=== PATIENT | female | born 1970 | race American Indian/Alaskan Native ===

== ENCOUNTER 2016-10-31 23:25 | Emergency (ER) | payer OTHER ==
--- NOTE | 2016-11-01 05:13 | Emergency Department Report ---
- General Chief complaint: Skin/Abscess/Foreign Body Stated complaint: BUMP ON BUTTOCK Time Seen by Provider: 11/01/16 05:07 Source: patient Mode of arrival: Ambulatory Limitations: No Limitations - History of Present Illness Initial comments: Patient here reported that she developed abscess of the right buttocks that seemed to pass on a large area and she states that was sitting out all day. She said that this started last Tuesday and is getting worse. She says she is a diabetic and she doesn't have a primary care physician. She said that she took insulin in the past but she hasn't taken any in one year because she does not have any insurance in cannot pay for insulin. Her blood sugar in triage was 331 and on chemistry was 334. Pt reports absces area TTP And presently at 3 out of 10. She denies any fever or chills. Denies any insect bite. Patient has a history of congestive heart failure asthma stroke diabetes greater than hypertension. She said her blood sugar has been manageable but she thinks it's okay she has. Infection why her blood sugars so high. MD complaint: abscess/boil Onset/Timin -: week(s) Tetanus Up to Date: yes Location: buttocks Severity: mild Severity scale (0 -10): 4 Quality: aching Consistency: intermittent Improves with: immobilization Worsens with: palpation, movement Context: none Treatments Prior to Arrival: bandages - Related Data Home Medications Medication Instructions Recorded Confirmed Last Taken ALBUTEROL Inhaler [ProAir HFA 2 puff IH QID PRN 07/28/16 07/28/16 Unknown Inhaler] Albuterol Sulfate [Albuterol 0.63% 0.63 mg IH TID PRN 07/28/16 07/28/16 Unknown NEBS] Previous Rx's Medication Instructions Recorded Last Taken Type Aspirin [Aspirin BABY CHEW TAB] 1 tab PO DAILY #30 tab.chew 04/07/14 Unknown Rx Lisinopril [Zestril TAB] 1 tab PO DAILY #30 tablet 07/29/16 Unknown Rx amLODIPine [Norvasc] 5 mg PO QDAY #30 tablet 07/29/16 Unknown Rx Acetaminophen/Codeine [Tylenol #3] 1 tab PO Q6H PRN #20 tab 11/01/16 Unknown Rx Cephalexin [Keflex] 500 mg PO Q8HR #30 cap 11/01/16 Unknown Rx Ferrous Sulfate [Feosol 325 MG tab] 325 mg PO BID #60 tablet 11/01/16 Unknown Rx Sulfamethoxazole/Trimethoprim 1 each PO BID #20 tablet 11/01/16 Unknown Rx [Bactrim DS TAB] Allergies Allergy/AdvReac Type Severity Reaction Status Date / Time grape Allergy "PASS Verified 10/31/16 23:45 OUT/HYPERVENTILATE" Abscess Boil HPI - HPI Chief Complaint: Skin/Abscess/Foreign Body Stated Complaint: BUMP ON BUTTOCK Time Seen by Provider: 11/01/16 05:07 Home Medications: Home Medications Medication Instructions Recorded Confirmed Last Taken ALBUTEROL Inhaler [ProAir HFA 2 puff IH QID PRN 07/28/16 07/28/16 Unknown Inhaler] Albuterol Sulfate [Albuterol 0.63% 0.63 mg IH TID PRN 07/28/16 07/28/16 Unknown NEBS] Previous Rx's Medication Instructions Recorded Last Taken Type Aspirin [Aspirin BABY CHEW TAB] 1 tab PO DAILY #30 tab.chew 04/07/14 Unknown Rx Lisinopril [Zestril TAB] 1 tab PO DAILY #30 tablet 07/29/16 Unknown Rx amLODIPine [Norvasc] 5 mg PO QDAY #30 tablet 07/29/16 Unknown Rx Acetaminophen/Codeine [Tylenol #3] 1 tab PO Q6H PRN #20 tab 11/01/16 Unknown Rx Cephalexin [Keflex] 500 mg PO Q8HR #30 cap 11/01/16 Unknown Rx Ferrous Sulfate [Feosol 325 MG tab] 325 mg PO BID #60 tablet 11/01/16 Unknown Rx Sulfamethoxazole/Trimethoprim 1 each PO BID #20 tablet 11/01/16 Unknown Rx [Bactrim DS TAB] Allergies/Adverse Reactions: Allergies Allergy/AdvReac Type Severity Reaction Status Date / Time grape Allergy "PASS Verified 10/31/16 23:45 OUT/HYPERVENTILATE" ED Review of Systems ROS: Stated complaint: BUMP ON BUTTOCK Other details as noted in HPI Comment: All other systems reviewed and negative Constitutional: denies: chills, fever ENT: denies: congestion Respiratory: no symptoms reported Cardiovascular: denies: chest pain, palpitations, edema, syncope Gastrointestinal: denies: abdominal pain, nausea, vomiting, diarrhea Musculoskeletal: denies: back pain, joint swelling, arthralgia Skin: other (abscess to right buttocks). denies: rash Neurological: denies: headache ED Past Medical Hx - Past Medical History Previous Medical History?: Yes Hx Hypertension: Yes Hx CVA: (TIA 2012) Hx Congestive Heart Failure: Yes Hx Diabetes: Yes Hx GERD: Yes Hx Asthma: Yes - Surgical History Past Surgical History?: Yes Hx Cholecystectomy: Yes Additional Surgical History: X 2 - Family History Family history: diabetes, hypertension - Social History Smoking Status: Never Smoker Substance Use Type: None - Medications Home Medications: Home Medications Medication Instructions Recorded Confirmed Last Taken Type Aspirin [Aspirin BABY CHEW TAB] 1 tab PO DAILY #30 tab.chew 04/07/14 07/28/16 Unknown Rx ALBUTEROL Inhaler [ProAir HFA 2 puff IH QID PRN 07/28/16 07/28/16 Unknown History Inhaler] Albuterol Sulfate [Albuterol 0.63% 0.63 mg IH TID PRN 07/28/16 07/28/16 Unknown History NEBS] Lisinopril [Zestril TAB] 1 tab PO DAILY #30 tablet 07/29/16 Unknown Rx amLODIPine [Norvasc] 5 mg PO QDAY #30 tablet 07/29/16 Unknown Rx Acetaminophen/Codeine [Tylenol #3] 1 tab PO Q6H PRN #20 tab 11/01/16 Unknown Rx Cephalexin [Keflex] 500 mg PO Q8HR #30 cap 11/01/16 Unknown Rx Ferrous Sulfate [Feosol 325 MG tab] 325 mg PO BID #60 tablet 11/01/16 Unknown Rx Sulfamethoxazole/Trimethoprim 1 each PO BID #20 tablet 11/01/16 Unknown Rx [Bactrim DS TAB] ED Physical Exam - General Limitations: No Limitations General appearance: alert, in no apparent distress - Head Head exam: Present: atraumatic, normocephalic, normal inspection - Eye Eye exam: Present: normal appearance, PERRL, EOMI. Absent: periorbital swelling , periorbital tenderness Pupils: Present: normal accommodation - ENT ENT exam: Present: normal exam, normal orophraynx, mucous membranes moist, TM's normal bilaterally, normal external ear exam - Neck Neck exam: Present: normal inspection, full ROM. Absent: tenderness, meningismus, lymphadenopathy - Respiratory Respiratory exam: Present: normal lung sounds bilaterally. Absent: respiratory distress, chest wall tenderness - Cardiovascular Cardiovascular Exam: Present: regular rate, normal rhythm, normal heart sounds - GI/Abdominal GI/Abdominal exam: Present: soft, normal bowel sounds. Absent: distended, tenderness, guarding, rebound, rigid - Extremities Exam Extremities exam: Present: normal inspection, full ROM, normal capillary refill. Absent: tenderness, pedal edema, joint swelling, calf tenderness - Back Exam Back exam: Present: normal inspection, full ROM. Absent: tenderness, CVA tenderness (R), CVA tenderness (L), muscle spasm, paraspinal tenderness, vertebral tenderness, rash noted - Neurological Exam Neurological exam: Present: alert, oriented X3, normal gait, reflexes normal. Absent: motor sensory deficit - Psychiatric Psychiatric exam: Present: normal affect, normal mood - Expanded Skin Exam Expanded Type of lesion: Present: abscess Distribution of rash: other (right buttocks) Description of rash: Present: size (4 x 4 area of erythema with 2 x 2 area of induration and minimal fluctuance.), tenderness, erythematous, swelling, fluctuant, indurated. Absent: discharge ED Course Vital Signs 10/31/16 23:45 Temperature 98.5 F Pulse Rate 75 Respiratory 18 Rate Blood Pressure 126/69 O2 Sat by Pulse 99 Oximetry - Reevaluation(s) Reevaluation #1: 11/01/16 07:23 Patient given clindamycin 600 mg IM for his cellulitis and abscess. She was also given insulin regular for blood sugar 331 and her blood sugars now a 301. unable to give patient IV fluids becausef she has a history of chf - I & D Right Buttocks Type of Procedure: Complex Site: right buttocks Blade Size: 0.5% Marcaine 10 cc used to numb area I & D Procedure: betadine prep, sterile drapes applied, sterile dressing applied , gauze wick placed Progress: Patient said TD vaccine is UP to said tetanus vaccine is up-to-date.date ED Medical Decision Making - Lab Data Result diagrams: 11/01/16 05:14 11/01/16 05:14 Lab Results 11/01/16 11/01/16 11/01/16 Range/Units 04:13 05:14 05:14 WBC 9.3 (4.5-11.0) K/mm3 RBC 4.64 (3.65-5.03) M/mm3 Hgb 8.0 L (10.1-14.3) gm/dl Hct 26.9 L (30.3-42.9) % MCV 58 L (79-97) fl MCH 17 L (28-32) pg MCHC 30 (30-34) % RDW 19.9 H (13.2-15.2) % Plt Count 442 H (140-440) K/mm3 Lymph % (Auto) 25.4 (13.4-35.0) % [place] % (Auto) 6.6 (0.0-7.3) % Eos % (Auto) 1.3 (0.0-4.3) % Baso % (Auto) 0.4 (0.0-1.8) % Lymph # 2.4 (1.2-5.4) K/mm3 [place] # 0.6 (0.0-0.8) K/mm3 Eos # 0.1 (0.0-0.4) K/mm3 Baso # 0.0 (0.0-0.1) K/mm3 Seg Neutrophils % 66.3 (40.0-70.0) % Seg Neutrophils # 6.1 (1.8-7.7) K/mm3 Sodium 136 L (137-145) mmol/L Potassium 3.9 (3.6-5.0) mmol/L Chloride 97.9 L (98-107) mmol/L Carbon Dioxide 24 (22-30) mmol/L Anion Gap 18 mmol/L BUN 10 (7-17) mg/dL Creatinine 0.7 (0.7-1.2) mg/dL Estimated GFR > 60 ml/min BUN/Creatinine Ratio 14.28 % Glucose 334 H (65-100) mg/dL POC Glucose 331 H (70-105) Calcium 8.9 (8.4-10.2) mg/dL 11/01/16 Range/Units 07:13 WBC (4.5-11.0) K/mm3 RBC (3.65-5.03) M/mm3 Hgb (10.1-14.3) gm/dl Hct (30.3-42.9) % MCV (79-97) fl MCH (28-32) pg MCHC (30-34) % RDW (13.2-15.2) % Plt Count (140-440) K/mm3 Lymph % (Auto) (13.4-35.0) % [place] % (Auto) (0.0-7.3) % Eos % (Auto) (0.0-4.3) % Baso % (Auto) (0.0-1.8) % Lymph # (1.2-5.4) K/mm3 [place] # (0.0-0.8) K/mm3 Eos # (0.0-0.4) K/mm3 Baso # (0.0-0.1) K/mm3 Seg Neutrophils % (40.0-70.0) % Seg Neutrophils # (1.8-7.7) K/mm3 Sodium (137-145) mmol/L Potassium (3.6-5.0) mmol/L Chloride (98-107) mmol/L Carbon Dioxide (22-30) mmol/L Anion Gap mmol/L BUN (7-17) mg/dL Creatinine (0.7-1.2) mg/dL Estimated GFR ml/min BUN/Creatinine Ratio % Glucose (65-100) mg/dL POC Glucose 301 H (70-105) Calcium (8.4-10.2) mg/dL Wound culture sent and pending - Medical Decision Making ED course: See procedure note for details on incision and drainage with packing. Patient here for abscess to right buttocks which was incision and drained. Area with significant induration and minimal fluctuance therefore small amount of pus was expressed. I told patient she needs to do sitz baths 3- 4 times a day to help to soften up abscess and facilitate drainage. I also instructed her to leave packing in place and to return to emergency room in 4 days for removal of packing and reevaluation of wound. I told her that she needs to take her blood her daily and if she has a fever she needs to return to emergency room [facility]. Patient has congestive heart failure with fluid restriction so I was unable to give her any medication for blood sugar 331. I gave her 6 units of insulin regular which brought her blood sugar down to 301. She said her blood sugar is usually in the 100 and she thinks it's because she has an infection right elevated. Patient CBC reflects normal white count and she is anemic which is chronic for her. I discussed with her that I'll put her on iron pill because she says she is not on any iron pill at present. Her kidney functions are normal, CO2 is a 24 and anion gap is 18. I discussed patient that I'll discharge her on antibiotic and she will need to call [facility] and schedule an appointment for management of chronic disease. Patient discharged home with prescription for Bactrim, Feso4, Tylenol 3 and Keflex. She was understanding of diagnosis and discharge instruction discharged home in stable condition. Critical care attestation.: If time is entered above; I have spent that time in minutes in the direct care of this critically ill patient, excluding procedure time. ED Disposition Clinical Impression: Abscess of cellulitis of buttock, Encounter for incision and drainage procedure , Hyperglycemia, Anemia of chronic disease Disposition: DISCHARGED TO HOME OR SELFCARE Is pt being admited?: No Does the pt Need Aspirin: No Condition: Stable Instructions: Diabetes Mellitus Type 1 in Adults (ED), Acute Wound Care (ED), Diabetic Hyperglycemia (ED), Abscess Incision and Drainage (ED), Cellulitis (ED) Additional Instructions: Please follow-up with [facility] for management of chronic disease. Please call today to schedule an appointment. Please take her blood sugar daily. Please do sitz baths 3-4 times a day to facilitate drainage of abscess to right buttocks. Keep affected area clean and dry. Tylenol 3 will cause drowsiness to please do not drive or operate heavy machinery while taking this medication. Take Bactrim and Keflex antibiotic. Please return to hospital in 4 days to have fever wound recheck and packing removed Prescriptions: Acetaminophen/Codeine [Tylenol #3] 1 tab PO Q6H PRN #20 tab PRN Reason: Pain Cephalexin [Keflex] 500 mg PO Q8HR #30 cap Ferrous Sulfate [Feosol 325 MG tab] 325 mg PO BID #60 tablet Sulfamethoxazole/Trimethoprim [Bactrim DS TAB] 1 each PO BID #20 tablet Referrals: [facility] [Outside] - 11/02/16 [facility] [Outside] - 11/02/16 Forms: Work/School Release Form(ED)
[2016-11-01] MEDS ORDERED: CLEOCIN IM ONE (05:17)
[2016-11-01 05:44] LABS: Anion Gap 18 mmol/L; BUN/Creatinine Ratio 14.28; Blood Urea Nitrogen 10 mg/dL (7-17); Calcium 8.9 mg/dL (8.4-10.2); Carbon Dioxide 24 mmol/L (22-30); Chloride 97.9 mmol/L (98-107); Glucose 334 mg/dL (65-100); Potassium 3.9 mmol/L (3.6-5.0); Sodium 136 mmol/L (137-145)
[2016-11-01 05:45] LABS: Basophils % (Auto) 0.4 % (0.0-1.8); Eosinophils % (Auto) 1.3 % (0.0-4.3); Hematocrit 26.9 % (30.3-42.9); Mean Corpuscular HGB Conc 30 % (30-34); Platelet Count 442 K/mm3 (140-440); Red Blood Count 4.64 M/mm3 (3.65-5.03); Red Cell Distribution Width 19.9 % (13.2-15.2); White Blood Count 9.3 K/mm3 (4.5-11.0)
[2016-11-01] MEDS ORDERED: MARCAINE 0.5% INFILTRATI NR (06:00)
[2016-11-01 06:04] LABS: Mean Corpuscular Volume 58 fl (79-97)
[2016-11-01 06:05] LABS: Mean Corpuscular Hemoglobin 17 pg (28-32)
[2016-11-01] MEDS ORDERED: NOVOLOG SUB-Q ONE (06:15)
[2016-11-01 08:01] VITALS: BP 136/80
== END 2016-11-01 07:45 | disposition home or self-care (01) ==
LOC: ED 23:25
DX: L02.31 Cutaneous abscess of buttock (principal); L03.317 Cellulitis of buttock; E11.65 Type 2 diabetes mellitus with hyperglycemia; D53.9 Nutritional anemia, unspecified; I10 Essential (primary) hypertension; I50.9 Heart failure, unspecified; K21.9 Gastro-esophageal reflux disease without esophagitis; J45.909 Unspecified asthma, uncomplicated; Z90.49 Acquired absence of other specified parts of digestive tract; Z86.73 Personal history of transient ischemic attack (TIA), and cerebral infarction without residual deficits; Z91.018 Allergy to other foods
CPT/HCPCS: 36415; 80048; 82962; 85025; 87076; 87116; 87185; 87186; 96372; J1815

== ENCOUNTER 2016-12-23 21:24 | Emergency (ER) | payer OTHER ==
[2016-12-23 22:21] LABS: Basophils % (Auto) 0.3 % (0.0-1.8); Eosinophils % (Auto) 0.5 % (0.0-4.3); Mean Corpuscular HGB Conc 30 % (30-34); Platelet Count 323 K/mm3 (140-440); White Blood Count 8.8 K/mm3 (4.5-11.0)
[2016-12-23 22:25] LABS: Hemoglobin 9.5 gm/dl (10.1-14.3); Mean Corpuscular Hemoglobin 18 pg (28-32); Mean Corpuscular Volume 59 fl (79-97); Red Cell Distribution Width 20.6 % (13.2-15.2)
[2016-12-23 22:29] LABS: Alanine Aminotransferase 9 units/L (7-56); Albumin 3.7 g/dL (3.9-5); Albumin/Globulin Ratio 1.1 %; Alkaline Phosphatase 89 units/L (35-129); Anion Gap 17 mmol/L; BUN/Creatinine Ratio 13.33; Blood Urea Nitrogen 8 mg/dL (7-17); Calcium 9.1 mg/dL (8.4-10.2); Carbon Dioxide 24 mmol/L (22-30); Potassium 4.3 mmol/L (3.6-5.0); Sodium 131 mmol/L (137-145); Total Protein 7.1 g/dL (6.3-8.2)
[2016-12-23 22:47] LABS: Glucose 566 mg/dL (65-100)
[2016-12-23 23:18] LABS: Bilirubin,Urine NEG (Negative); Blood,Urine SM (Negative); Ketones,Urine TR mg/dL (Negative); Leukocyte Esterase,Urine MOD (Negative); Nitrite,Urine NEG (Negative); Protein,Urine <15 mg/dL mg/dL (Negative); Urobilinogen,Urine < 2.0 mg/dL (<2.0)
[2016-12-23] MEDS ORDERED: NACL 0.9% 1000 ML 1,000 ML IV ONE (23:35)
[2016-12-24] MEDS ORDERED: TORADOL IV ONE (01:11)
[2016-12-24] MEDS ORDERED: ZOFRAN IV ONE (01:11)
[2016-12-24] MEDS ORDERED: MORPHINE IV ONE (01:11)
[2016-12-24] MEDS ORDERED: NACL 0.9% 1000 ML 1,000 ML IV ONE (01:11)
--- NOTE | 2016-12-24 01:17 | Emergency Department Report ---
ED Abdominal Pain HPI - General Chief Complaint: Abdominal Pain Stated Complaint: RIGHT TOE PAIN Time Seen by Provider: 12/24/16 00:55 Source: patient Mode of arrival: Ambulatory Limitations: No Limitations - History of Present Illness Initial Comments: 46-year-old female with a past medical history of diabetes (insulin), CVA, hypertension, GERD, and previous cholecystectomy and 2 presents to the hospital complaints of abdominal pain and right great toe pain. Patient has had suprapubic abdominal pain 1 week. Pain is sharp, intermittent, worse with palpation. Rated 7/10 intensity. No alleviating factors. Positive associated vaginal discharge. Patient sexually active with one partner and occasional condom use. She denies nausea, vomiting, diarrhea, fever, dysuria, or hematuria. Patient has secondary complaint of right great toe pain. 2 days ago she pushed her cuticle to the side then her proximal great toe nail came off with the distal still attached. Patient complains of 7/10 pain to this area as well described as sharp. Patient has been noncompliant with all her medications including insulin for at least a year. She reports that she used to take a short acting insulin 10 units 3 times a day and a long acting insulin 15 units at night. PMD: Dr. Springer, patient has not followed up to see her physician. Severity scale (0 -10): 6 - Related Data Home Medications Medication Instructions Recorded Confirmed Last Taken ALBUTEROL Inhaler [ProAir HFA 2 puff IH QID PRN 07/28/16 07/28/16 Unknown Inhaler] Albuterol Sulfate [Albuterol 0.63% 0.63 mg IH TID PRN 07/28/16 07/28/16 Unknown NEBS] Previous Rx's Medication Instructions Recorded Last Taken Type Aspirin [Aspirin BABY CHEW TAB] 1 tab PO DAILY #30 tab.chew 04/07/14 Unknown Rx Lisinopril [Zestril TAB] 1 tab PO DAILY #30 tablet 07/29/16 Unknown Rx amLODIPine [Norvasc] 5 mg PO QDAY #30 tablet 07/29/16 Unknown Rx Acetaminophen/Codeine [Tylenol #3] 1 tab PO Q6H PRN #20 tab 11/01/16 Unknown Rx Cephalexin [Keflex] 500 mg PO Q8HR #30 cap 11/01/16 Unknown Rx Ferrous Sulfate [Feosol 325 MG tab] 325 mg PO BID #60 tablet 11/01/16 Unknown Rx Sulfamethoxazole/Trimethoprim 1 each PO BID #20 tablet 11/01/16 Unknown Rx [Bactrim DS TAB] Blood-Glucose Meter [Relion 1 each MC PRN #1 kit 12/24/16 Unknown Rx All-in-One] Ibuprofen [Motrin] 600 mg PO Q8H PRN #30 tablet 12/24/16 Unknown Rx Insulin Regular, Human [HumuLIN R] See Protocol SC ACHS #1000 units 12/24/16 Unknown Rx metroNIDAZOLE [Flagyl] 500 mg PO Q12HR #14 tab 12/24/16 Unknown Rx traMADol [Ultram 50 MG tab] 50 mg PO Q6HR PRN #20 tablet 12/24/16 Unknown Rx Allergies Allergy/AdvReac Type Severity Reaction Status Date / Time grape Allergy "PASS Verified 10/31/16 23:45 OUT/HYPERVENTILATE" ED Review of Systems ROS: Stated complaint: RIGHT TOE PAIN Other details as noted in HPI Comment: All other systems reviewed and negative Other: Constitutional: No fevers chills Eyes: No eye pain visual changes ENT: No ear pain or throat pain Neck: Denies pain Respiratory: Denies cough wheezing shortness of breath Cardiovascular: Denies chest pain, palpitations, syncope GI: Denies nausea, vomiting, diarrhea : Denies dysuria, urinary frequency, or urgency Musculoskeletal: as per hpi Skin: Denies rash, lesions, erythema Neurologic: Denies headache, numbness, weakness Psychiatric: Denies suicidal ideation, hallucinations ED Past Medical Hx - Past Medical History Previous Medical History?: Yes Hx Hypertension: Yes Hx CVA: (TIA 2012) Hx Congestive Heart Failure: Yes Hx Diabetes: Yes Hx GERD: Yes Hx Asthma: Yes - Surgical History Past Surgical History?: Yes Hx Cholecystectomy: Yes Additional Surgical History: X 2 - Social History Smoking Status: Never Smoker Substance Use Type: None - Medications Home Medications: Home Medications Medication Instructions Recorded Confirmed Last Taken Type Aspirin [Aspirin BABY CHEW TAB] 1 tab PO DAILY #30 tab.chew 04/07/14 07/28/16 Unknown Rx ALBUTEROL Inhaler [ProAir HFA 2 puff IH QID PRN 07/28/16 07/28/16 Unknown History Inhaler] Albuterol Sulfate [Albuterol 0.63% 0.63 mg IH TID PRN 07/28/16 07/28/16 Unknown History NEBS] Lisinopril [Zestril TAB] 1 tab PO DAILY #30 tablet 07/29/16 Unknown Rx amLODIPine [Norvasc] 5 mg PO QDAY #30 tablet 07/29/16 Unknown Rx Acetaminophen/Codeine [Tylenol #3] 1 tab PO Q6H PRN #20 tab 11/01/16 Unknown Rx Cephalexin [Keflex] 500 mg PO Q8HR #30 cap 11/01/16 Unknown Rx Ferrous Sulfate [Feosol 325 MG tab] 325 mg PO BID #60 tablet 11/01/16 Unknown Rx Sulfamethoxazole/Trimethoprim 1 each PO BID #20 tablet 11/01/16 Unknown Rx [Bactrim DS TAB] Blood-Glucose Meter [Relion 1 each MC PRN #1 kit 12/24/16 Unknown Rx All-in-One] Ibuprofen [Motrin] 600 mg PO Q8H PRN #30 tablet 12/24/16 Unknown Rx Insulin Regular, Human [HumuLIN R] See Protocol SC ACHS #1000 units 12/24/16 Unknown Rx metroNIDAZOLE [Flagyl] 500 mg PO Q12HR #14 tab 12/24/16 Unknown Rx traMADol [Ultram 50 MG tab] 50 mg PO Q6HR PRN #20 tablet 12/24/16 Unknown Rx ED Physical Exam - General Limitations: No Limitations - Other Other exam information: General: No limitations, patient is alert in no acute distress Head exam: Atraumatic, normocephalic Eyes exam: Normal appearance, pupils equal reactive to light, extraocular movements intact ENT: Moist mucous membrane, normal oropharynx Neck exam: Normal inspection, full range of motion, no meningismus nontender Respiratory exam: Clear to auscultation bilateral, no wheezes, rales, crackles Cardiovascular: Normal rate and rhythm, normal heart sounds Abdomen: Soft, nondistended, mild superpubic tenderness, with normal bowel sounds, no rebound, or guarding : White and clumping vaginal discharge on the labia and external vaginal area and internally . No CMT or adnexal tenderness Extremity: Full range of motion, 2+ DP pulses equal bilaterally. Right great toe with proximal toenail absent but distal still attached. Mild tenderness palpation. No edema, warmth, erythema, or purulent drainage. Back: Normal Inspection, full range of motion, no tenderness Neurologic: Alert, oriented x3, cranial nerves intact, no motor or sensory deficit Psychiatric: normal affect, normal mood Skin: Warm, dry, intact ED Course Vital Signs 12/23/16 12/23/16 12/24/16 21:46 23:55 01:06 Temperature 98.6 F Pulse Rate 77 76 78 Respiratory 18 18 16 Rate Blood Pressure 130/78 Blood Pressure 135/78 132/76 [Left] O2 Sat by Pulse 98 100 99 Oximetry 12/24/16 03:49 Temperature Pulse Rate 76 Respiratory 18 Rate Blood Pressure Blood Pressure 122/72 [Left] O2 Sat by Pulse 99 Oximetry - Reevaluation(s) Reevaluation #1: 12/24/16 01:16 Patient treated with insulin, normal saline with improvement and glucose was still elevated. Additional saline, insulin ordered. Morphine, Toradol, and Zofran ordered for pain Reevaluation #2: 12/24/16 04:38 Patient has a wet prep is positive for bacterial vaginosis, yeast, and Trichomonas. Patient will also be empirically treated for gonorrhea and chlamydia given findings for Trichomonas. Azithromycin, Flagyl, and Rocephin ordered. Diflucan ordered for yeast ED Medical Decision Making - Lab Data Result diagrams: 12/23/16 22:04 12/23/16 22:04 Lab Results 12/23/16 12/23/16 12/23/16 Range/Units 22:04 22:04 22:59 WBC 8.8 (4.5-11.0) K/mm3 RBC 5.40 H (3.65-5.03) M/mm3 Hgb 9.5 L (10.1-14.3) gm/dl Hct 32.0 (30.3-42.9) % MCV 59 L (79-97) fl MCH 18 L (28-32) pg MCHC 30 (30-34) % RDW 20.6 H (13.2-15.2) % Plt Count 323 (140-440) K/mm3 Lymph % (Auto) 24.7 (13.4-35.0) % Parker % (Auto) 6.6 (0.0-7.3) % Eos % (Auto) 0.5 (0.0-4.3) % Baso % (Auto) 0.3 (0.0-1.8) % Lymph # 2.2 (1.2-5.4) K/mm3 Parker # 0.6 (0.0-0.8) K/mm3 Eos # 0.0 (0.0-0.4) K/mm3 Baso # 0.0 (0.0-0.1) K/mm3 Seg Neutrophils % 67.9 (40.0-70.0) % Seg Neutrophils # 6.0 (1.8-7.7) K/mm3 Sodium 131 L (137-145) mmol/L Potassium 4.3 (3.6-5.0) mmol/L Chloride 94.0 L (98-107) mmol/L Carbon Dioxide 24 (22-30) mmol/L Anion Gap 17 mmol/L BUN 8 (7-17) mg/dL Creatinine 0.6 L (0.7-1.2) mg/dL Estimated GFR > 60 ml/min BUN/Creatinine Ratio 13.33 % Glucose 566 H* (65-100) mg/dL POC Glucose (70-105) Calcium 9.1 (8.4-10.2) mg/dL Total Bilirubin 0.30 (0.1-1.2) mg/dL AST 11 (5-40) units/L ALT 9 (7-56) units/L Alkaline Phosphatase 89 (35-129) units/L Total Protein 7.1 (6.3-8.2) g/dL Albumin 3.7 L (3.9-5) g/dL Albumin/Globulin Ratio 1.1 % Urine Color Straw (Yellow) Urine Turbidity Clear (Clear) Urine pH 6.0 (5.0-7.0) Ur Specific [place] 1.033 H (1.003-1.030) Urine Protein <15 mg/dl (Negative) mg/dL Urine Glucose (UA) >=500 (Negative) mg/dL Urine Ketones Tr (Negative) mg/dL Urine Blood Sm (Negative) Urine Nitrite Neg (Negative) Ur Reducing Substances Not Reportable Urine Bilirubin Neg (Negative) Urine Ictotest Not Reportable Urine Urobilinogen < 2.0 (<2.0) mg/dL Ur Leukocyte Esterase Mod (Negative) Urine WBC (Auto) 9.0 H (0.0-6.0) /HPF Urine RBC (Auto) 5.0 (0.0-6.0) /HPF U Epithel Cells (Auto) 2.0 (0-13.0) /HPF Urine HCG, Qual Negative (Negative) 12/23/16 12/24/16 12/24/16 Range/Units 23:36 00:53 02:22 WBC (4.5-11.0) K/mm3 RBC (3.65-5.03) M/mm3 Hgb (10.1-14.3) gm/dl Hct (30.3-42.9) % MCV (79-97) fl MCH (28-32) pg MCHC (30-34) % RDW (13.2-15.2) % Plt Count (140-440) K/mm3 Lymph % (Auto) (13.4-35.0) % Parker % (Auto) (0.0-7.3) % Eos % (Auto) (0.0-4.3) % Baso % (Auto) (0.0-1.8) % Lymph # (1.2-5.4) K/mm3 Parker # (0.0-0.8) K/mm3 Eos # (0.0-0.4) K/mm3 Baso # (0.0-0.1) K/mm3 Seg Neutrophils % (40.0-70.0) % Seg Neutrophils # (1.8-7.7) K/mm3 Sodium (137-145) mmol/L Potassium (3.6-5.0) mmol/L Chloride (98-107) mmol/L Carbon Dioxide (22-30) mmol/L Anion Gap mmol/L BUN (7-17) mg/dL Creatinine (0.7-1.2) mg/dL Estimated GFR ml/min BUN/Creatinine Ratio % Glucose (65-100) mg/dL POC Glucose > 500 H 332 H 186 H (70-105) Calcium (8.4-10.2) mg/dL Total Bilirubin (0.1-1.2) mg/dL AST (5-40) units/L ALT (7-56) units/L Alkaline Phosphatase (35-129) units/L Total Protein (6.3-8.2) g/dL Albumin (3.9-5) g/dL Albumin/Globulin Ratio % Urine Color (Yellow) Urine Turbidity (Clear) Urine pH (5.0-7.0) Ur Specific [place] (1.003-1.030) Urine Protein (Negative) mg/dL Urine Glucose (UA) (Negative) mg/dL Urine Ketones (Negative) mg/dL Urine Blood (Negative) Urine Nitrite (Negative) Ur Reducing Substances Urine Bilirubin (Negative) Urine Ictotest Urine Urobilinogen (<2.0) mg/dL Ur Leukocyte Esterase (Negative) Urine WBC (Auto) (0.0-6.0) /HPF Urine RBC (Auto) (0.0-6.0) /HPF U Epithel Cells (Auto) (0-13.0) /HPF Urine HCG, Qual (Negative) 12/24/16 Range/Units 03:42 WBC (4.5-11.0) K/mm3 RBC (3.65-5.03) M/mm3 Hgb (10.1-14.3) gm/dl Hct (30.3-42.9) % MCV (79-97) fl MCH (28-32) pg MCHC (30-34) % RDW (13.2-15.2) % Plt Count (140-440) K/mm3 Lymph % (Auto) (13.4-35.0) % Parker % (Auto) (0.0-7.3) % Eos % (Auto) (0.0-4.3) % Baso % (Auto) (0.0-1.8) % Lymph # (1.2-5.4) K/mm3 Parker # (0.0-0.8) K/mm3 Eos # (0.0-0.4) K/mm3 Baso # (0.0-0.1) K/mm3 Seg Neutrophils % (40.0-70.0) % Seg Neutrophils # (1.8-7.7) K/mm3 Sodium (137-145) mmol/L Potassium (3.6-5.0) mmol/L Chloride (98-107) mmol/L Carbon Dioxide (22-30) mmol/L Anion Gap mmol/L BUN (7-17) mg/dL Creatinine (0.7-1.2) mg/dL Estimated GFR ml/min BUN/Creatinine Ratio % Glucose (65-100) mg/dL POC Glucose 177 H (70-105) Calcium (8.4-10.2) mg/dL Total Bilirubin (0.1-1.2) mg/dL AST (5-40) units/L ALT (7-56) units/L Alkaline Phosphatase (35-129) units/L Total Protein (6.3-8.2) g/dL Albumin (3.9-5) g/dL Albumin/Globulin Ratio % Urine Color (Yellow) Urine Turbidity (Clear) Urine pH (5.0-7.0) Ur Specific [place] (1.003-1.030) Urine Protein (Negative) mg/dL Urine Glucose (UA) (Negative) mg/dL Urine Ketones (Negative) mg/dL Urine Blood (Negative) Urine Nitrite (Negative) Ur Reducing Substances Urine Bilirubin (Negative) Urine Ictotest Urine Urobilinogen (<2.0) mg/dL Ur Leukocyte Esterase (Negative) Urine WBC (Auto) (0.0-6.0) /HPF Urine RBC (Auto) (0.0-6.0) /HPF U Epithel Cells (Auto) (0-13.0) /HPF Urine HCG, Qual (Negative) Wet prep: Greater than 20 clue cells, + yeast, + trichomonas GC Chlamydia: Pending - Medical Decision Making Glucose has improved with IV fluids and multiple doses of insulin. Patient has been off of her medication times one year. She will be prescribed of regular insulin 3 times a day sliding scale and encouraged to follow-up with a primary care doctor for further insulin management. She will be treated for Trichomonas , BV, and yeast. She was empirically treated for gonorrhea and chlamydia since results are pending. Right great toe does not appear to be infected. Podiatry follow-up will be recommended - Differential Diagnosis cellulitis, vaginitis, cervicitis, diverticulitis, appendicitis, UTI Critical Care Time: No Critical care attestation.: If time is entered above; I have spent that time in minutes in the direct care of this critically ill patient, excluding procedure time. ED Disposition Clinical Impression: Diabetes mellitus with hyperglycemia, Noncompliance with medication regimen, Yeast vaginitis, Trichomonas infection, Bacterial vaginosis, Nail avulsion, toe Disposition: DISCHARGED TO HOME OR SELFCARE Is pt being admited?: No Does the pt Need Aspirin: No Condition: Stable Instructions: Diabetes Mellitus Type 2 in Adults (ED), Bacterial Vaginosis (ED) , Trichomoniasis (ED), Vulvovaginal Candidiasis (ED), Toenail/Fingernail Removal (ED) Additional Instructions: Take the medication as prescribed. Use the good Rx card provided at [facility] to see if this make sure medication more affordable. Your gonorrhea chlamydia tests are pending but you were treated today. Your gonorrhea and chlamydia tests are pending and take approximately 3-4 days result. You may obtain results in medical records with a photo ID. You may also obtain results through the follow-up doctor office via medical record request. He was treated today for yeast infection as well but it would be difficult to treat if you're sugars are not controlled with her insulin. If he continued to have itching and discharge he may use [id number] yeast infection treatment. Follow-up with the primary care doctor or clinic in [facility] doctor provided for further treatment. Follow-up with the bulk clerk/foot doctor regarding your toenail. Prescriptions: Blood-Glucose Meter [Relion All-in-One] 1 each MC PRN #1 kit Ibuprofen [Motrin] 600 mg PO Q8H PRN #30 tablet PRN Reason: Pain Insulin Regular, Human [HumuLIN R] See Protocol SC ACHS #1000 units metroNIDAZOLE [Flagyl] 500 mg PO Q12HR #14 tab traMADol [Ultram 50 MG tab] 50 mg PO Q6HR PRN #20 tablet PRN Reason: Pain Referrals: [facility] [Provider Group] - 2-3 Days [facility], [Primary Care Provider] - 2-3 Days SHALINI ROOT DPM [Staff Physician] - 3-5 Days (Podiatry) DANNI EDWARDS MD [Staff Physician] - 2-3 Days (Primary care doctor) [facility] [Provider Group] - 2-3 Days (Primary care clinic) Forms: STI Treatment and Prevention Time of Disposition: 05:06
[2016-12-24] MEDS ORDERED: ZITHROMAX PO ONE (04:35)
[2016-12-24] MEDS ORDERED: FLAGYL PO ONE (04:35)
[2016-12-24] MEDS ORDERED: ROCEPHIN 250 MG in NACL 0.9% 50 ML IV ONE (04:35)
[2016-12-24] MEDS ORDERED: DIFLUCAN PO ONE (04:39)
[2016-12-24 05:53] VITALS: BP 126/74
== END 2016-12-24 05:53 | disposition home or self-care (01) ==
LOC: ED 21:24
DX: S91.201A Unspecified open wound of right great toe with damage to nail, initial encounter (principal); E11.65 Type 2 diabetes mellitus with hyperglycemia; N76.0 Acute vaginitis; A59.01 Trichomonal vulvovaginitis; B37.3 Candidiasis of vulva and vagina; I10 Essential (primary) hypertension; I50.9 Heart failure, unspecified; K21.9 Gastro-esophageal reflux disease without esophagitis; J45.909 Unspecified asthma, uncomplicated; Z91.14 Patient's other noncompliance with medication regimen; Z86.73 Personal history of transient ischemic attack (TIA), and cerebral infarction without residual deficits; Z90.49 Acquired absence of other specified parts of digestive tract; Z91.018 Allergy to other foods; X58.XXXA Exposure to other specified factors, initial encounter; Y93.89 Activity, other specified; Y99.8 Other external cause status; Y92.89 Other specified places as the place of occurrence of the external cause
CPT/HCPCS: 36415; 80053; 81001; 81025; 82962; 85025; 87086; 87210; 87591; 96361; 96365; 96375; 96376; 99284; J0696; J1885; J2270; J2405; J7030; J1815

== ENCOUNTER 2017-04-22 19:01 | Emergency (ER) | payer SELFPAY ==
[2017-04-22 20:37] LABS: Basophils % (Auto) 0.9 % (0.0-1.8); Eosinophils % (Auto) 0.9 % (0.0-4.3); Hematocrit 32.7 % (30.3-42.9); Hemoglobin 9.9 gm/dl (10.1-14.3); Mean Corpuscular HGB Conc 30 % (30-34); Mean Corpuscular Hemoglobin 20 pg (28-32); Mean Corpuscular Volume 67 fl (79-97); Platelet Count 453 K/mm3 (140-440); Red Blood Count 4.88 M/mm3 (3.65-5.03); Red Cell Distribution Width 19.1 % (13.2-15.2)
[2017-04-22 20:52] LABS: Anion Gap 18 mmol/L; Blood Urea Nitrogen 10 mg/dL (7-17); Calcium 8.9 mg/dL (8.4-10.2); Carbon Dioxide 23 mmol/L (22-30); Chloride 94.4 mmol/L (98-107); Potassium 4.4 mmol/L (3.6-5.0); Sodium 131 mmol/L (137-145)
[2017-04-22 20:56] LABS: Glucose 581 mg/dL (65-100)
[2017-04-22 20:56] LABS: Bilirubin,Urine NEG (Negative); Blood,Urine SM (Negative); Ketones,Urine NEG (Negative); Leukocyte Esterase,Urine LG (Negative); Mucus,Urine FEW /HPF; Nitrite,Urine NEG (Negative); Protein,Urine <15 mg/dL mg/dL (Negative); Urobilinogen,Urine < 2.0 mg/dL (<2.0)
[2017-04-22] MEDS ORDERED: NACL 0.9% 1000 ML 1,000 ML IV ONE ×2 (21:20→23:24)
[2017-04-22] MEDS ORDERED: MORPHINE IV ONE (21:33)
[2017-04-22] MEDS ORDERED: ZOFRAN IV ONE (21:33)
[2017-04-22] MEDS ORDERED: PEPCID IV ONE (21:33)
[2017-04-22 21:50] LABS: Alanine Aminotransferase 8 units/L (7-56); Albumin 3.6 g/dL (3.9-5); Albumin/Globulin Ratio 1.2 %; Alkaline Phosphatase 125 units/L (35-129); Bilirubin,Total < 0.20 mg/dL (0.1-1.2); Lipase 50 units/L (13-60); Total Protein 6.5 g/dL (6.3-8.2)
[2017-04-22 21:53] LABS: Bilirubin,Direct < 0.2 mg/dL (0-0.2)
--- NOTE | 2017-04-22 21:57 | Emergency Department Report ---
ED Chest Pain HPI - General Chief Complaint: Chest Pain Stated Complaint: HYPERGLYCEMIA Time Seen by Provider: 04/22/17 21:19 Source: patient, old records reviewed (07/2016 negative Lexiscan stress test with the EF of 65%) Mode of arrival: Wheelchair Limitations: No Limitations - History of Present Illness Initial Comments: 46-year-old female with a past medical history of chf (recent EF 65%), TIA, angina per diabetes, GERD, and hypertension presents to the hospital complaining of elevated glucose and chest pain. Patient having left-sided chest pain intermittently for the last days. Pain is sharp, worse inspiration, movement, and palpation. Positive associated acute breath. Pain moves down to the epigastric and upper abdominal area. Recently started 10/10 in intensity. Positive nausea. Denies vomiting, calf tenderness, edema, diarrhea, fever, melena, or hematochezia. Patient has been noncompliant with her Lantus 1 month due to loss of insurance and inability to see a physician for a refill. She is supposed to take Lantus 10 units 3 times a day. Severity scale (0 -10): 7 - Related Data Previous Rx's Medication Instructions Recorded Last Taken Type Famotidine [Pepcid] 20 mg PO BID #30 tablet 04/23/17 Unknown Rx Insulin Glargine [Lantus VIAL] 10 unit SUB-Q TID #30 day 04/23/17 Unknown Rx Nitrofurantoin Dolores/M-Cryst 100 mg PO Q12HR #10 capsule 04/23/17 Unknown Rx [Macrobid CAP] traMADol [Ultram 50 MG tab] 50 mg PO Q6HR PRN #20 tablet 04/23/17 Unknown Rx Allergies Allergy/AdvReac Type Severity Reaction Status Date / Time grape Allergy "PASS Verified 10/31/16 23:45 OUT/HYPERVENTILATE" Heart Score - HEART Score History: Slightly suspicious EKG: Normal Age: 45-65 Risk factors: > 3 risk factors or hx of atherosclerotic disease Troponin: < normal limit HEART Score: 3 ED Review of Systems ROS: Stated complaint: HYPERGLYCEMIA Other details as noted in HPI Comment: All other systems reviewed and negative Other: Constitutional: No fevers chills Eyes: No eye pain visual changes ENT: No ear pain or throat pain Neck: Denies pain Respiratory: Denies cough Cardiovascular: Denies chest pain, palpitations, syncope GI: Denies abdominal pain, nausea, vomiting, diarrhea, : Denies dysuria, increased urinary frequency Musculoskeletal: Denies back pain, joint swelling Skin: Denies rash, lesions, erythema Neurologic: Denies headache, numbness, weakness Psychiatric: Denies suicidal ideation, hallucinations ED Past Medical Hx - Past Medical History Hx Hypertension: Yes Hx CVA: (TIA 2012) Hx Congestive Heart Failure: Yes Hx Diabetes: Yes Hx GERD: Yes Hx Asthma: Yes - Surgical History Hx Cholecystectomy: Yes Additional Surgical History: X 2 - Social History Smoking Status: Never Smoker Substance Use Type: None - Medications Home Medications: Home Medications Medication Instructions Recorded Confirmed Last Taken Type Famotidine [Pepcid] 20 mg PO BID #30 tablet 04/23/17 Unknown Rx Insulin Glargine [Lantus VIAL] 10 unit SUB-Q TID #30 day 04/23/17 Unknown Rx Nitrofurantoin Dolores/M-Cryst 100 mg PO Q12HR #10 capsule 04/23/17 Unknown Rx [Macrobid CAP] traMADol [Ultram 50 MG tab] 50 mg PO Q6HR PRN #20 tablet 04/23/17 Unknown Rx ED Physical Exam - General Limitations: No Limitations - Other Other exam information: General: No limitations, patient is alert in no acute distress Head exam: Atraumatic, normocephalic Eyes exam: Normal appearance ENT: Moist mucous membrane, normal oropharynx Neck exam: Normal inspection, full range of motion, no meningismus nontender Respiratory exam: Clear to auscultation bilateral, no wheezes, rales, crackles. Reproducible left-sided sternal chest wall tenderness Cardiovascular: Normal rate and rhythm, normal heart sounds Abdomen: Soft, nondistended, epigastric tenderness, with normal bowel sounds, no rebound, or guarding Extremity: Full range of motion normal inspection no deformity, tenderness or edema Back: Normal Inspection, full range of motion, no tenderness Neurologic: Alert, oriented x3, cranial nerves intact, no motor or sensory deficit Psychiatric: normal affect, normal mood Skin: Warm, dry, intact ED Course Vital Signs 04/22/17 04/22/17 04/22/17 19:41 20:07 21:47 Temperature 98.2 F Pulse Rate 72 Respiratory 16 16 16 Rate Blood Pressure 117/67 Blood Pressure 117/67 [Left] O2 Sat by Pulse 98 98 Oximetry 04/22/17 22:17 Temperature Pulse Rate Respiratory 18 Rate Blood Pressure Blood Pressure [Left] O2 Sat by Pulse Oximetry - Reevaluation(s) Reevaluation #1: 04/23/17 01:11 Patient states she is feeling much better ED treatment. Positive improvement in pain and glucose. JAZZ score - Jazz Score Age > 65: (0) No Aspirin use within the Past 7 Days: (0) No 3 or more CAD Risk Factors: (1) Yes 2 or more Angina events in past 24 hrs: (0) No Known CAD with more than 50% Stenosis: (0) No Elevated Cardiac Markers: (0) No ST Deviation Greater than 0.5mm: (0) No JAZZ Score: 1 ED Medical Decision Making - Lab Data Result diagrams: 04/22/17 20:05 04/22/17 20:05 Lab Results 04/22/17 04/22/17 04/22/17 Range/Units 20:05 20:05 20:22 WBC 9.0 (4.5-11.0) K/mm3 RBC 4.88 (3.65-5.03) M/mm3 Hgb 9.9 L (10.1-14.3) gm/dl Hct 32.7 (30.3-42.9) % MCV 67 L (79-97) fl MCH 20 L (28-32) pg MCHC 30 (30-34) % RDW 19.1 H (13.2-15.2) % Plt Count 453 H (140-440) K/mm3 Lymph % (Auto) 23.9 (13.4-35.0) % Dolores % (Auto) 5.8 (0.0-7.3) % Eos % (Auto) 0.9 (0.0-4.3) % Baso % (Auto) 0.9 (0.0-1.8) % Lymph # 2.2 (1.2-5.4) K/mm3 Dolores # 0.5 (0.0-0.8) K/mm3 Eos # 0.1 (0.0-0.4) K/mm3 Baso # 0.1 (0.0-0.1) K/mm3 Seg Neutrophils % 68.5 (40.0-70.0) % Seg Neutrophils # 6.2 (1.8-7.7) K/mm3 D-Dimer (0-234) ng/mlDDU Sodium 131 L (137-145) mmol/L Potassium 4.4 (3.6-5.0) mmol/L Chloride 94.4 L (98-107) mmol/L Carbon Dioxide 23 (22-30) mmol/L Anion Gap 18 mmol/L BUN 10 (7-17) mg/dL Creatinine 0.8 (0.7-1.2) mg/dL Estimated GFR > 60 ml/min BUN/Creatinine Ratio 12.50 % Glucose 581 H* (65-100) mg/dL POC Glucose (70-105) Calcium 8.9 (8.4-10.2) mg/dL Total Bilirubin (0.1-1.2) mg/dL Direct Bilirubin (0-0.2) mg/dL Indirect Bilirubin mg/dL AST (5-40) units/L ALT (7-56) units/L Alkaline Phosphatase (35-129) units/L Troponin T < 0.010 (0.00-0.029) ng/mL Total Protein (6.3-8.2) g/dL Albumin (3.9-5) g/dL Albumin/Globulin Ratio % Lipase (13-60) units/L Urine Color Colorless (Yellow) Urine Turbidity Clear (Clear) Urine pH 6.0 (5.0-7.0) Ur Specific [place] 1.026 (1.003-1.030) Urine Protein <15 mg/dl (Negative) mg/dL Urine Glucose (UA) >=500 (Negative) mg/dL Urine Ketones Neg (Negative) mg/dL Urine Blood Sm (Negative) Urine Nitrite Neg (Negative) Urine Bilirubin Neg (Negative) Urine Urobilinogen < 2.0 (<2.0) mg/dL Ur Leukocyte Esterase Lg (Negative) Urine WBC (Auto) 72.0 H (0.0-6.0) /HPF Urine RBC (Auto) 5.0 (0.0-6.0) /HPF U Epithel Cells (Auto) 2.0 (0-13.0) /HPF Urine Mucus Few /HPF 04/22/17 04/22/17 04/22/17 Range/Units 21:33 21:40 23:01 WBC (4.5-11.0) K/mm3 RBC (3.65-5.03) M/mm3 Hgb (10.1-14.3) gm/dl Hct (30.3-42.9) % MCV (79-97) fl MCH (28-32) pg MCHC (30-34) % RDW (13.2-15.2) % Plt Count (140-440) K/mm3 Lymph % (Auto) (13.4-35.0) % Dolores % (Auto) (0.0-7.3) % Eos % (Auto) (0.0-4.3) % Baso % (Auto) (0.0-1.8) % Lymph # (1.2-5.4) K/mm3 Dolores # (0.0-0.8) K/mm3 Eos # (0.0-0.4) K/mm3 Baso # (0.0-0.1) K/mm3 Seg Neutrophils % (40.0-70.0) % Seg Neutrophils # (1.8-7.7) K/mm3 D-Dimer 158.45 (0-234) ng/mlDDU Sodium (137-145) mmol/L Potassium (3.6-5.0) mmol/L Chloride (98-107) mmol/L Carbon Dioxide (22-30) mmol/L Anion Gap mmol/L BUN (7-17) mg/dL Creatinine (0.7-1.2) mg/dL Estimated GFR ml/min BUN/Creatinine Ratio % Glucose (65-100) mg/dL POC Glucose 302 H (70-105) Calcium (8.4-10.2) mg/dL Total Bilirubin < 0.20 (0.1-1.2) mg/dL Direct Bilirubin < 0.2 (0-0.2) mg/dL Indirect Bilirubin 0.0 mg/dL AST 10 (5-40) units/L ALT 8 (7-56) units/L Alkaline Phosphatase 125 (35-129) units/L Troponin T (0.00-0.029) ng/mL Total Protein 6.5 (6.3-8.2) g/dL Albumin 3.6 L (3.9-5) g/dL Albumin/Globulin Ratio 1.2 % Lipase 50 (13-60) units/L Urine Color (Yellow) Urine Turbidity (Clear) Urine pH (5.0-7.0) Ur Specific [place] (1.003-1.030) Urine Protein (Negative) mg/dL Urine Glucose (UA) (Negative) mg/dL Urine Ketones (Negative) mg/dL Urine Blood (Negative) Urine Nitrite (Negative) Urine Bilirubin (Negative) Urine Urobilinogen (<2.0) mg/dL Ur Leukocyte Esterase (Negative) Urine WBC (Auto) (0.0-6.0) /HPF Urine RBC (Auto) (0.0-6.0) /HPF U Epithel Cells (Auto) (0-13.0) /HPF Urine Mucus /HPF 04/23/17 Range/Units 00:02 WBC (4.5-11.0) K/mm3 RBC (3.65-5.03) M/mm3 Hgb (10.1-14.3) gm/dl Hct (30.3-42.9) % MCV (79-97) fl MCH (28-32) pg MCHC (30-34) % RDW (13.2-15.2) % Plt Count (140-440) K/mm3 Lymph % (Auto) (13.4-35.0) % Dolores % (Auto) (0.0-7.3) % Eos % (Auto) (0.0-4.3) % Baso % (Auto) (0.0-1.8) % Lymph # (1.2-5.4) K/mm3 Dolores # (0.0-0.8) K/mm3 Eos # (0.0-0.4) K/mm3 Baso # (0.0-0.1) K/mm3 Seg Neutrophils % (40.0-70.0) % Seg Neutrophils # (1.8-7.7) K/mm3 D-Dimer (0-234) ng/mlDDU Sodium (137-145) mmol/L Potassium (3.6-5.0) mmol/L Chloride (98-107) mmol/L Carbon Dioxide (22-30) mmol/L Anion Gap mmol/L BUN (7-17) mg/dL Creatinine (0.7-1.2) mg/dL Estimated GFR ml/min BUN/Creatinine Ratio % Glucose (65-100) mg/dL POC Glucose (70-105) Calcium (8.4-10.2) mg/dL Total Bilirubin (0.1-1.2) mg/dL Direct Bilirubin (0-0.2) mg/dL Indirect Bilirubin mg/dL AST (5-40) units/L ALT (7-56) units/L Alkaline Phosphatase (35-129) units/L Troponin T < 0.010 (0.00-0.029) ng/mL Total Protein (6.3-8.2) g/dL Albumin (3.9-5) g/dL Albumin/Globulin Ratio % Lipase (13-60) units/L Urine Color (Yellow) Urine Turbidity (Clear) Urine pH (5.0-7.0) Ur Specific [place] (1.003-1.030) Urine Protein (Negative) mg/dL Urine Glucose (UA) (Negative) mg/dL Urine Ketones (Negative) mg/dL Urine Blood (Negative) Urine Nitrite (Negative) Urine Bilirubin (Negative) Urine Urobilinogen (<2.0) mg/dL Ur Leukocyte Esterase (Negative) Urine WBC (Auto) (0.0-6.0) /HPF Urine RBC (Auto) (0.0-6.0) /HPF U Epithel Cells (Auto) (0-13.0) /HPF Urine Mucus /HPF - EKG Data -: EKG Interpreted by Me (sinus bradycardia [address] elevation or T-wave.) - EKG Data When compared to previous EKG there are: no significant change - Radiology Data Radiology results: image reviewed (cxr: naf) - Medical Decision Making Patient feels much better with ED treatment. Glucose improved. Pain free. Cardiac enzymes negative 2. D-dimer negative. Chest pain reproducible. Negative stress test July 2016. Patient be discharged with a refill of her medication, compliance encouraged, outpatient follow-up encouraged. - Differential Diagnosis DKA, hyperglycemia, PE, costochondritis, gastritis Critical Care Time: No Critical care attestation.: If time is entered above; I have spent that time in minutes in the direct care of this critically ill patient, excluding procedure time. ED Disposition Clinical Impression: Chest wall pain, UTI (urinary tract infection), Diabetes mellitus with hyperglycemia, Noncompliance with medication regimen Disposition: TO HOME OR SELFCARE Is pt being admited?: No Does the pt Need Aspirin: No Condition: Stable Instructions: Chest Pain (ED), Diabetes Mellitus Type 2 in Adults (ED), Urinary Tract Infection in Women (ED) Additional Instructions: Take the medication as prescribed. Return if symptoms worsen. Follow-up with the primary care doctor or clinic provided. Prescriptions: Famotidine [Pepcid] 20 mg PO BID #30 tablet Insulin Glargine [Lantus VIAL] 10 unit SUB-Q TID #30 day Nitrofurantoin Dolores/M-Cryst [Macrobid CAP] 100 mg PO Q12HR #10 capsule traMADol [Ultram 50 MG tab] 50 mg PO Q6HR PRN #20 tablet PRN Reason: Pain Referrals: [facility] [Provider Group] - 3-5 Days BALTAZAR SIMONS MD [Staff Physician] - 3-5 Days Time of Disposition: 01:18
[2017-04-22] MEDS ORDERED: ROCEPHIN/NS 1 GM/50 ML 1 GM/50 ML BAG IV ONE (22:09)
[2017-04-23 01:49] VITALS: BP 129/83
--- NOTE | 2017-04-23 09:50 | XRay Report ---
CHEST TWO VIEWS: 04/22/17 19:01:00 CLINICAL: Chest pain. COMPARISON: 07/28/16 FINDINGS: Normal heart and pulmonary vasculature. The lungs are normally expanded and clear.Spondylosis of the thoracic spine. IMPRESSION: No acute cardiopulmonary process.
== END 2017-04-23 01:48 | disposition home or self-care (01) ==
LOC: ED 19:01
DX: R07.89 Other chest pain (principal); N39.0 Urinary tract infection, site not specified; E11.65 Type 2 diabetes mellitus with hyperglycemia; Z91.14 Patient's other noncompliance with medication regimen; I10 Essential (primary) hypertension; I63.9 Cerebral infarction, unspecified; I50.9 Heart failure, unspecified; K21.9 Gastro-esophageal reflux disease without esophagitis; J45.909 Unspecified asthma, uncomplicated; Z90.49 Acquired absence of other specified parts of digestive tract; Z79.4 Long term (current) use of insulin; Z91.018 Allergy to other foods
CPT/HCPCS: 36415; 71020; 80048; 80074; 81001; 82962; 83690; 84484; 85025; 85379; 87076; 87086; 87186; 93005; 93010; 96361; 96365; 96375; 96376; 99285; J0696; J2270; J2405; J7030; J1815

== ENCOUNTER 2017-10-31 16:29 | Emergency (ER) | payer SELFPAY ==
[2017-10-31 16:51] VITALS: BP 172/100
[2017-10-31 17:20] LABS: Hemoglobin 12.4 gm/dl (10.1-14.3); Mean Corpuscular HGB Conc 32 % (30-34); Mean Corpuscular Volume 78 fl (79-97); Platelet Count 339 K/mm3 (140-440); Red Blood Count 4.99 M/mm3 (3.65-5.03); Red Cell Distribution Width 16.5 % (13.2-15.2)
[2017-10-31 17:23] LABS: Mean Corpuscular Hemoglobin 25 pg (28-32)
[2017-10-31 17:30] LABS: BUN/Creatinine Ratio 13; Blood Urea Nitrogen 8 mg/dL (7-17); Calcium 8.6 mg/dL (8.4-10.2); Hemolysis Index 3
[2017-10-31 17:56] LABS: Basophils % (Manual) 0 % (0.0-1.8); Total Cells Counted 100
[2017-10-31 17:57] LABS: Anisocytosis 1+; Poikilocytosis Few
--- NOTE | 2017-10-31 18:50 | XRay Report ---
FINAL REPORT PROCEDURE: XRAY CHEST 2 VIEWS TECHNIQUE: PA and lateral chest radiographs were obtained. CPT 46102 HISTORY: shortness of breath COMPARISON: No prior studies are available for comparison. FINDINGS: Heart: Normal. Mediastinum/Vessels: Normal. Lungs/Pleural space: No infiltrate, effusion, or pneumothorax. Bony thorax: No acute osseous abnormality. Other: IMPRESSION: No radiographic evidence of acute abnormality.
--- NOTE | 2017-10-31 21:01 | Emergency Department Report ---
ED Shortness of Breath HPI - General Chief Complaint: Dyspnea/Respdistress Stated Complaint: CP, FEET SWELLING, EMERSON Time Seen by Provider: 10/31/17 20:51 Source: patient Mode of arrival: Ambulatory Limitations: No Limitations - History of Present Illness Initial Comments: Patient is 47 years old female history of hypertension and diabetes and asthma the patient presented with shortness of breath cough productive with yellowish sputum for the last week. Patient stated that she's been traveling a lot recently she went to [place] and [place] and came back to [place]. Patient complained of a bilateral lower extremity swelling. Patient denies any chest pain. Patient denied any nausea or vomiting. MD Complaint: shortness of breath, cough -: days(s) Known History Of: asthma, diabetes Context: recent URI Associated Symptoms: cough, sputum production - Related Data Previous Rx's Medication Instructions Recorded Last Taken Type Famotidine [Pepcid] 20 mg PO BID #30 tablet 04/23/17 Unknown Rx Insulin Glargine [Lantus VIAL] 10 unit SUB-Q TID #30 day 04/23/17 Unknown Rx Nitrofurantoin Arthur/M-Cryst 100 mg PO Q12HR #10 capsule 04/23/17 Unknown Rx [Macrobid CAP] Syringe and Needle,Insulin,1Ml 1 each MC PRN #90 disp.syrin 04/23/17 Unknown Rx [Comfort Ez] traMADol [Ultram 50 MG tab] 50 mg PO Q6HR PRN #20 tablet 04/23/17 Unknown Rx Allergies Allergy/AdvReac Type Severity Reaction Status Date / Time grape Allergy "PASS Verified 10/31/16 23:45 OUT/HYPERVENTILATE" ED Review of Systems ROS: Stated complaint: CP, FEET SWELLING, EMERSON Other details as noted in HPI Comment: All other systems reviewed and negative Constitutional: denies: chills, fever, weakness Respiratory: cough, shortness of breath. denies: SOB with exertion, SOB at rest , wheezing Cardiovascular: denies: chest pain, palpitations, dyspnea on exertion Gastrointestinal: denies: abdominal pain, nausea, vomiting, diarrhea, constipation, hematemesis, melena, hematochezia Musculoskeletal: denies: back pain Neurological: denies: headache, weakness, numbness, paresthesias, confusion, abnormal gait ED Past Medical Hx - Past Medical History Previous Medical History?: Yes Hx Hypertension: Yes Hx CVA: Yes (TIA 2012) Hx Congestive Heart Failure: Yes Hx Diabetes: Yes Hx GERD: Yes Hx Asthma: Yes - Surgical History Past Surgical History?: Yes Hx Cholecystectomy: Yes Additional Surgical History: X 2 - Social History Smoking Status: Never Smoker Substance Use Type: Prescribed - Medications Home Medications: Home Medications Medication Instructions Recorded Confirmed Last Taken Type Famotidine [Pepcid] 20 mg PO BID #30 tablet 04/23/17 Unknown Rx Insulin Glargine [Lantus VIAL] 10 unit SUB-Q TID #30 day 04/23/17 Unknown Rx Nitrofurantoin Arthur/M-Cryst 100 mg PO Q12HR #10 capsule 04/23/17 Unknown Rx [Macrobid CAP] Syringe and Needle,Insulin,1Ml 1 each MC PRN #90 disp.syrin 04/23/17 Unknown Rx [Comfort Ez] traMADol [Ultram 50 MG tab] 50 mg PO Q6HR PRN #20 tablet 04/23/17 Unknown Rx ED Physical Exam - General Limitations: No Limitations General appearance: alert, in no apparent distress - Head Head exam: Present: atraumatic, normocephalic, normal inspection - Eye Eye exam: Present: normal appearance, PERRL - ENT ENT exam: Present: normal exam, normal orophraynx, mucous membranes moist - Neck Neck exam: Present: normal inspection, full ROM. Absent: tenderness, meningismus, lymphadenopathy - Respiratory Respiratory exam: Present: normal lung sounds bilaterally. Absent: respiratory distress, wheezes, rales, rhonchi, stridor, chest wall tenderness, accessory muscle use, decreased breath sounds, prolonged expiratory - Cardiovascular Cardiovascular Exam: Present: regular rate, normal rhythm, normal heart sounds - GI/Abdominal GI/Abdominal exam: Present: soft, normal bowel sounds. Absent: distended, tenderness, guarding, rebound, rigid, organomegaly, mass, bruit, pulsatile mass , hernia - Extremities Exam Extremities exam: Present: normal inspection, full ROM, normal capillary refill - Back Exam Back exam: Present: normal inspection, full ROM. Absent: tenderness, CVA tenderness (R), CVA tenderness (L), muscle spasm, paraspinal tenderness, vertebral tenderness, rash noted - Neurological Exam Neurological exam: Present: alert, oriented X3, CN II-XII intact, normal gait - Skin Skin exam: Present: warm, intact, normal color. Absent: cyanosis, diaphoretic, erythema ED Course Vital Signs 10/31/17 16:44 Temperature 98.2 F Pulse Rate 80 Respiratory 20 Rate Blood Pressure 172/100 O2 Sat by Pulse 100 Oximetry ED Medical Decision Making - Lab Data Result diagrams: 10/31/17 16:53 10/31/17 16:53 - EKG Data -: EKG Interpreted by Pa EKG shows normal: sinus rhythm Rate: normal - EKG Data Interpretation: no acute changes - Radiology Data Radiology results: report reviewed Referring Physician: ASHLEY DESAI Patient Name: ADITYA RUIZ Date of : 1970 Sex: Female Report Date: 2017-10-31 Report Status: Finalized Findings [facility] [address] [place] [address] XRay Report Signed Patient: ADITYA RUIZ MR#: [id number] : 1970 Acct:[id number] Age/Sex: 47 / F ADM Date: 10/31/17 Loc: ED Attending Dr: Ordering Physician: ASHLEY DESAI MD Date of Service: 10/31/17 Procedure(s): XR chest routine 2V Accession Number(s): [id number] cc: ASHLEY DESAI MD Fluoro Time In Minutes: FINAL REPORT PROCEDURE: XRAY CHEST 2 VIEWS TECHNIQUE: PA and lateral chest radiographs were obtained. CPT 67364 HISTORY: shortness of breath COMPARISON: No prior studies are available for comparison. FINDINGS: Heart: Normal. Mediastinum/Vessels: Normal. Lungs/Pleural space: No infiltrate, effusion, or pneumothorax. Bony thorax: No acute osseous abnormality. Other: IMPRESSION: No radiographic evidence of acute abnormality. Transcribed By: [facility] Dictated By: NAVA DE LA CRUZ M.D. Electronically Authenticated By: NAVA DE LA CRUZ M.D. Signed Date/Time: 10/31/171844 DD/ 44 TD/TT: 10/31/171844 - Medical Decision Making Condition symptoms is consistent with acute bronchitis, blood work is negative including a negative d-dimer, patient is low probability for DVT and PE. Chest x-ray is negative for pneumonia. I will treat patient with amoxicillin twice a day for 7 days and cough medicine and I advised patient to follow up with her primary care physician in the next 2-3 days. I Advised patient to return to the ER if her symptoms is not improving. Critical care attestation.: If time is entered above; I have spent that time in minutes in the direct care of this critically ill patient, excluding procedure time. ED Disposition Clinical Impression: Shortness of breath, Acute bronchitis Disposition: TO HOME OR SELFCARE Is pt being admited?: No Condition: Stable Instructions: Acute Bronchitis (ED), Dyspnea (ED) Referrals: SOLITARIO RIVERA MD [Staff Physician] - 3-5 Days
[2017-10-31 21:32] LABS: INR 0.8 (0.87-1.13)
== END 2017-10-31 21:53 | disposition home or self-care (01) ==
LOC: ED 16:29
DX: J20.9 Acute bronchitis, unspecified (principal); J45.909 Unspecified asthma, uncomplicated; E11.9 Type 2 diabetes mellitus without complications; I11.0 Hypertensive heart disease with heart failure; I50.9 Heart failure, unspecified; K21.9 Gastro-esophageal reflux disease without esophagitis; Z86.73 Personal history of transient ischemic attack (TIA), and cerebral infarction without residual deficits; Z91.018 Allergy to other foods
CPT/HCPCS: 36415; 71046; 80048; 83880; 84484; 85007; 85025; 85379; 85610; 85730; 93005; 93010

== ENCOUNTER 2021-09-16 19:20 | Emergency (ER) | payer MEDICAID, OTHER ==
[2021-09-16] MEDS ORDERED: ASPIRIN 325 MG TAB PO ONE (20:16)
[2021-09-16] MEDS ORDERED: CYCLOBENZAPRINE 10 MG TAB PO ONE (20:16)
--- NOTE | 2021-09-16 21:16 | Emergency Department Report ---
ED Chest Pain HPI - General Chief Complaint: Chest Pain Stated Complaint: CHEST PAIN Time Seen by Provider: 09/16/21 20:05 Source: patient Mode of arrival: Ambulatory Limitations: No Limitations - History of Present Illness Initial Comments: Patient is a 51-year-old female presents emergency room with complaints of mid and left-sided chest pain that began yesterday while she was at work. Patient states that she was lifting boxes of potato chips while at work when she started feeling the pain. She states it is intermittent sharp pain. She states it is worse with turning over. She states that she was also experiencing some tingling sensation in her bilateral arms. She denies any fever, cough, nausea, vomiting, diarrhea, diaphoresis, shortness of breath. Past medical history of DM, HTN, CVA. Allergy to great. She is a non-smoker. She denies any family cardiac history under the age of 65. - Related Data Previous Rx's Medication Instructions Recorded Last Taken Type Famotidine [Pepcid] 20 mg PO BID #30 tablet 04/23/17 Unknown Rx Insulin Glargine [Lantus VIAL] 10 unit SUB-Q TID #30 day 04/23/17 Unknown Rx Syringe and Needle,Insulin,1Ml 1 each MC PRN #90 disp.syrin 04/23/17 Unknown Rx [Comfort Ez Insulin Syringe] Albuterol Mdi (or & Nicu Only) 2 puff IH QID PRN #1 inhalation 10/31/17 Unknown Rx [ProAir HFA Inhaler] Aspirin EC [Ecotrin] 325 mg PO QDAY #30 tablet. 03/15/20 Unknown Rx AtorvaSTATin [Lipitor] 40 mg PO QHS #30 tablet 03/15/20 Unknown Rx Aspirin [Adult Aspirin] 81 mg PO DAILY #30 tab 09/17/21 Unknown Rx methOCARBAMOL [Robaxin TAB] 500 mg PO BID PRN #20 tab 09/17/21 Unknown Rx Allergies Allergy/AdvReac Type Severity Reaction Status Date / Time grape Allergy "PASS Verified 10/31/16 23:45 OUT/HYPERVENTILATE" Heart Score - HEART Score History: Slightly suspicious EKG: Normal Age: 45-65 Risk factors: > 3 risk factors or hx of atherosclerotic disease Troponin: < normal limit HEART Score: 3 - EKG Read Time Time EKG Completed: 20:22 EKG Read Time: 20:22 ED Review of Systems ROS: Stated complaint: CHEST PAIN Other details as noted in HPI Comment: All other systems reviewed and negative ED Past Medical Hx - Past Medical History Previous Medical History?: Yes Hx Hypertension: Yes Hx CVA: Yes (TIA 2012) Hx Congestive Heart Failure: Yes Hx Diabetes: Yes Hx GERD: Yes Hx Asthma: Yes - Surgical History Past Surgical History?: Yes Hx Cholecystectomy: Yes Additional Surgical History: X 2 - Social History Smoking Status: Never Smoker - Medications Home Medications: Home Medications Medication Instructions Recorded Confirmed Last Taken Type Famotidine [Pepcid] 20 mg PO BID #30 tablet 04/23/17 03/15/20 Unknown Rx Insulin Glargine [Lantus VIAL] 10 unit SUB-Q TID #30 day 04/23/17 03/15/20 Unknown Rx Syringe and Needle,Insulin,1Ml 1 each MC PRN #90 disp.syrin 04/23/17 03/15/20 Unknown Rx [Comfort Ez Insulin Syringe] Albuterol Mdi (or & Nicu Only) 2 puff IH QID PRN #1 inhalation 10/31/17 03/15/20 Unknown Rx [ProAir HFA Inhaler] Aspirin EC [Ecotrin] 325 mg PO QDAY #30 tablet.dr 03/15/20 Unknown Rx AtorvaSTATin [Lipitor] 40 mg PO QHS #30 tablet 03/15/20 Unknown Rx Aspirin [Adult Aspirin] 81 mg PO DAILY #30 tab 09/17/21 Unknown Rx methOCARBAMOL [Robaxin TAB] 500 mg PO BID PRN #20 tab 09/17/21 Unknown Rx ED Physical Exam - General Limitations: No Limitations General appearance: alert, in no apparent distress - Head Head exam: Present: atraumatic, normocephalic - Eye Eye exam: Present: normal appearance - ENT ENT exam: Present: mucous membranes moist - Respiratory Respiratory exam: Present: normal lung sounds bilaterally, chest wall tenderness (mid and left sided anterior chest wall ttp is reproducible, no crepitus, no deformity). Absent: respiratory distress, wheezes, rales, rhonchi, stridor, accessory muscle use, decreased breath sounds, prolonged expiratory - Cardiovascular Cardiovascular Exam: Present: regular rate, normal rhythm, normal heart sounds. Absent: systolic murmur, diastolic murmur, rubs, gallop - Neurological Exam Neurological exam: Present: alert, oriented X3 - Psychiatric Psychiatric exam: Present: normal affect, normal mood - Skin Skin exam: Present: warm, dry, intact ED Course Vital Signs 09/16/21 09/17/21 20:12 01:30 Temperature 98.6 F 98.2 F Pulse Rate 54 L 62 Respiratory 18 20 Rate Blood Pressure 154/81 148/90 [Right] O2 Sat by Pulse 100 98 Oximetry NARENDRA score - Narendra Score Age > 65: (0) No Aspirin use within the Past 7 Days: (0) No 3 or more CAD Risk Factors: (1) Yes 2 or more Angina events in past 24 hrs: (0) No Known CAD with more than 50% Stenosis: (0) No Elevated Cardiac Markers: (0) No ST Deviation Greater than 0.5mm: (0) No NARENDRA Score: 1 ED Medical Decision Making - Lab Data Result diagrams: 09/16/21 21:13 09/16/21 21:13 Lab Results 09/16/21 09/16/21 09/16/21 Range/Units 21:13 21:13 23:30 WBC 11.1 H (4.5-11.0) K/mm3 RBC 4.17 (3.65-5.03) M/mm3 Hgb 13.0 (10.1-14.3) gm/dl Hct 40.0 (30.3-42.9) % MCV 96 (79-97) fl MCH 31 (28-32) pg MCHC 33 (30-34) % RDW 14.2 (13.2-15.2) % Plt Count 205 (140-440) K/mm3 Lymph % (Auto) 15.8 (13.4-35.0) % Beckham % (Auto) 6.9 (0.0-7.3) % Eos % (Auto) 0.3 (0.0-4.3) % Baso % (Auto) 0.6 (0.0-1.8) % Lymph # (Auto) 1.8 (1.2-5.4) K/mm3 Beckham # (Auto) 0.8 (0.0-0.8) K/mm3 Eos # (Auto) 0.0 (0.0-0.4) K/mm3 Baso # (Auto) 0.1 (0.0-0.1) K/mm3 Seg Neutrophils % 76.4 H (40.0-70.0) % Seg Neutrophils # 8.5 H (1.8-7.7) K/mm3 Sodium 137 (137-145) mmol/L Potassium 4.7 (3.6-5.0) mmol/L Chloride 105.2 (98-107) mmol/L Carbon Dioxide 20 L (22-30) mmol/L Anion Gap 17 mmol/L BUN 15 (7-17) mg/dL Creatinine 0.9 (0.6-1.2) mg/dL Estimated GFR > 60 ml/min BUN/Creatinine Ratio 17 % Glucose 232 H (65-100) mg/dL Calcium 9.1 (8.4-10.2) mg/dL Total Bilirubin 0.40 (0.1-1.2) mg/dL AST 13 (5-40) units/L ALT 8 (7-56) units/L Alkaline Phosphatase 85 (35-129) units/L Troponin T < 0.010 < 0.010 (0.00-0.029) ng/mL Total Protein 8.2 (6.3-8.2) g/dL Albumin 4.2 (3.9-5) g/dL Albumin/Globulin Ratio 1.1 % Vital Signs 09/16/21 09/17/21 20:12 01:30 Temperature 98.6 F 98.2 F Pulse Rate 54 L 62 Respiratory 18 20 Rate Blood Pressure 154/81 148/90 [Right] O2 Sat by Pulse 100 98 Oximetry - EKG Data EKG shows normal: sinus rhythm, axis, intervals, QRS complexes, ST-T waves Rate: bradycardia (53 bpm) - Radiology Data Radiology results: report reviewed Ordering Physician: MILY LARSON Date of Service: 09/16/21 Procedure(s): XR chest routine 2V Accession Number(s): [id number] cc: MILY LARSON Fluoro Time In Minutes: XR chest routine 2V INDICATION / CLINICAL INFORMATION: Chest Pain. COMPARISON: 10/31/2017. FINDINGS: SUPPORT DEVICES: None. HEART /PULMONARY VASCULATURE: No significant abnormality. LUNGS / PLEURA: No significant pulmonary or pleural abnormality. No pneumothorax. ADDITIONAL FINDINGS: No significant additional findings. IMPRESSION: 1. No acute findings. Signer Name: Johnny Londono MD Signed: 09/16/2021 9:13 PM Workstation Name: [id number] Transcribed By: ROJELIO Dictated By: JOHNNY LONDONO MD Electronically Authenticated By: JOHNNY LONDONO MD Signed Date/Time: 09/16/212112 DD/ 12 TD/TT: - Medical Decision Making Patient is a 51-year-old female presents emergency room with complaints of mid and left-sided chest pain that began yesterday while she was at work. Patient states that she was lifting boxes of potato chips while at work when she started feeling the pain. She states it is intermittent sharp pain. She states it is worse with turning over. She states that she was also experiencing some tingling sensation in her bilateral arms. She denies any fever, cough, nausea, vomiting, diarrhea, diaphoresis, shortness of breath. Past medical history of D M, HTN, CVA. Allergy to great. She is a non-smoker. She denies any family cardiac history under the age of 65. Vitals are stable. On exam:mid and left sided anterior chest wall ttp is reproducible, no crepitus, no deformity. EKG with mild bradycardia, otherwise normal. Chest x-ray with no acute process. Labs with elevated blood glucose at 232, patient has chronic diabetes, otherwise labs are stable. Troponin is negative x2. Heart score is 3. Discussed case with Dr. Cornejo, ER attending who advised to discuss with patient inpatient admission versus close outpatient cardiology follow-up. I offered patient inpatient cardiology admission for stress test and echo, patient politely dec lined, she states that she would like close outpatient cardiology follow-up. With the patient's permission I faxed over her information via the chest pain protocol for close cardiology follow-up. I discussed with patient the importance of cardiology follow-up. I discussed strict return precautions and advised to return to emergency room immediately for any new or worsening symptoms. Critical care attestation.: If time is entered above; I have spent that time in minutes in the direct care of this critically ill patient, excluding procedure time. ED Disposition Clinical Impression: Chest pain Qualifiers: Chest pain type: unspecified Qualified Code(s): R07.9 - Chest pain, unspecified Disposition: HOME / SELF CARE / HOMELESS Is pt being admited?: No Does the pt Need Aspirin: No Condition: Stable Instructions: Nonspecific Chest Pain, Adult, Costochondritis Additional Instructions: Please take medication as prescribed as needed. Follow-up with a lockstitch topstitcher. I have faxed your information over to the lockstitch topstitcher with your permission and therefore they should be reaching out to you, if you do not receive a call tomorrow please give their office a call to set up a close outpatient follow-up as you need to have an outpatient stress test. Return to emergency room immediately for any new or worsening symptoms. Prescriptions: Aspirin [Adult Aspirin] 81 mg PO DAILY #30 tab methOCARBAMOL [Robaxin TAB] 500 mg PO BID PRN #20 tab PRN Reason: pain/muscle spasm Referrals: PRIMARY CARE,MD [Primary Care Provider] - 3-5 Days [facility] [Provider Group] - 3-5 Days Forms: Work/School Release Form(ED) Time of Disposition: 01:05 Print Language: MACEDONIAN
[2021-09-16 21:56] LABS: Alanine Aminotransferase 8 units/L (7-56); Albumin 4.2 g/dL (3.9-5); BUN/Creatinine Ratio 17; Blood Urea Nitrogen 15 mg/dL (7-17); Calcium 9.1 mg/dL (8.4-10.2); Hemolysis Index 3
[2021-09-16 22:03] LABS: Basophils # (Auto) 0.1 K/mm3 (0.0-0.1); Basophils % (Auto) 0.6 % (0.0-1.8); Eosinophils % (Auto) 0.3 % (0.0-4.3); Lymphocytes # (Auto) 1.8 K/mm3 (1.2-5.4); Lymphocytes % (Auto) 15.8 % (13.4-35.0); Mean Corpuscular HGB Conc 33 % (30-34); Mean Corpuscular Volume 96 fl (79-97); Monocytes # (Auto) 0.8 K/mm3 (0.0-0.8); Monocytes % (Auto) 6.9 % (0.0-7.3); Platelet Count 205 K/mm3 (140-440); Red Blood Count 4.17 M/mm3 (3.65-5.03); Red Cell Distribution Width 14.2 % (13.2-15.2)
[2021-09-17 01:31] VITALS: BP 148/90
--- NOTE | 2021-09-17 10:55 | Electrocardiograph Report ---
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
== END 2021-09-17 01:30 | disposition home or self-care (01) ==
LOC: ED 19:20
DX: R07.9 Chest pain, unspecified (principal); E11.9 Type 2 diabetes mellitus without complications; Z86.73 Personal history of transient ischemic attack (TIA), and cerebral infarction without residual deficits; I11.0 Hypertensive heart disease with heart failure; I50.9 Heart failure, unspecified; K21.9 Gastro-esophageal reflux disease without esophagitis; J45.909 Unspecified asthma, uncomplicated; Z90.49 Acquired absence of other specified parts of digestive tract; Z98.890 Other specified postprocedural states; Z91.018 Allergy to other foods
CPT/HCPCS: 36415; 71046; 80053; 84484; 85025; 93005; 93010; 99284

== ENCOUNTER 2021-10-28 02:32 | Emergency (ER) | payer MEDICAID ==
[2021-10-28] MEDS ORDERED: SODIUM CHLORIDE 0.9% 1000 ML 1,000 ML IV ONE (03:39)
--- NOTE | 2021-10-28 03:49 | Emergency Department Report ---
HPI - General Time Seen by Provider: 10/28/21 03:31 - HPI HPI: Room 5 The patient is a 51-year-old female present with a chief complaint of hyperglycemia. The patient states that she forgot to take her insulin today and noticed her blood sugar became elevated. Patient states began to feel lightheaded upon her to come to the emergency department. Patient denies any other symptoms. ED Past Medical Hx - Past Medical History Hx Hypertension: Yes Hx CVA: Yes (2012) Hx Congestive Heart Failure: Yes Hx Diabetes: Yes Hx GERD: Yes Hx Asthma: Yes - Surgical History Hx Cholecystectomy: Yes Additional Surgical History: X 2 - Family History Family history: no significant - Social History Smoking Status: Current Every Day Smoker (1/3 pack/day) Substance Use Type: None (Denies illicit drug use), Alcohol (Occasional) - Medications Home Medications: Home Medications Medication Instructions Recorded Confirmed Last Taken Type Famotidine [Pepcid] 20 mg PO BID #30 tablet 04/23/17 03/15/20 Unknown Rx Insulin Glargine [Lantus VIAL] 10 unit SUB-Q TID #30 day 04/23/17 03/15/20 Unknown Rx Syringe and Needle,Insulin,1Ml 1 each MC PRN #90 disp.syrin 04/23/17 03/15/20 Unknown Rx [Comfort Ez Insulin Syringe] Albuterol Mdi (or & Nicu Only) 2 puff IH QID PRN #1 inhalation 10/31/17 03/15/20 Unknown Rx [ProAir HFA Inhaler] Aspirin EC [Ecotrin] 325 mg PO QDAY #30 tablet.dr 03/15/20 Unknown Rx AtorvaSTATin [Lipitor] 40 mg PO QHS #30 tablet 03/15/20 Unknown Rx Aspirin [Adult Aspirin] 81 mg PO DAILY #30 tab 09/17/21 Unknown Rx methOCARBAMOL [Robaxin TAB] 500 mg PO BID PRN #20 tab 09/17/21 Unknown Rx ED Review of Systems ROS: Stated complaint: WEAKNESS/HIGH BLOOD SUGAR Other details as noted in HPI Constitutional: no symptoms reported Eyes: denies: eye pain ENT: denies: throat pain Respiratory: no symptoms reported Cardiovascular: denies: chest pain Endocrine: other (Hyperglycemia) Gastrointestinal: denies: abdominal pain Genitourinary: denies: dysuria Musculoskeletal: denies: back pain Neurological: other (Lightheadedness). denies: headache Physical Exam - Physical Exam Vital Signs: Vital Signs 10/28/21 10/28/21 03:21 03:30 Pulse Rate 79 80 Respiratory 14 16 Rate Blood Pressure 151/83 O2 Sat by Pulse 100 Oximetry Physical Exam: GENERAL: The patient is well-developed well-nourished female lying on stretcher not appearing to be in acute distress. [] HEENT: Normocephalic. Atraumatic. Extraocular motions are intact. Patient has moist mucous membranes. NECK: Supple. Trachea midline CHEST/LUNGS: Clear to auscultation. There is no respiratory distress noted. HEART/CARDIOVASCULAR: Regular. There is no tachycardia. There is no gallop rub or murmur. ABDOMEN: Abdomen is soft, nontender. Patient has normal bowel sounds. There is no abdominal distention. SKIN: There is no rash. There is no edema. There is no diaphoresis. NEURO: The patient is awake, alert, and oriented. The patient is cooperative. The patient has no focal neurologic deficits. The patient has normal speech. Cranial nerves II through XII grossly intact. GCS 15 MUSCULOSKELETAL: There is no evidence of acute injury. ED Course Vital Signs 10/28/21 10/28/21 03:21 03:30 Pulse Rate 79 80 Respiratory 14 16 Rate Blood Pressure 151/83 O2 Sat by Pulse 100 Oximetry - Reevaluation(s) Reevaluation #1: 10/28/21 05:44 Accu-Chek 271 ED Medical Decision Making - Lab Data Result diagrams: 10/28/21 03:47 10/28/21 03:47 - Differential Diagnosis Hyperglycemia, DKA, dehydration, alcohol intoxication Critical care attestation.: If time is entered above; I have spent that time in minutes in the direct care of this critically ill patient, excluding procedure time. ED Disposition Clinical Impression: Hyperglycemia Disposition: 01 HOME / SELF CARE / HOMELESS Is pt being admited?: No Does the pt Need Aspirin: No Condition: Stable Instructions: Hyperglycemia, [id number] Additional Instructions: Return to the emergency department should you develop worsening symptoms, inability to tolerate food or liquids, high fever or any other concerns Referrals: MARTHA STEWART MD [Staff Physician] - 3-5 Days (Dr. Stewart is a primary physician. Please follow-up with him if you do not already have a primary physician) Time of Disposition: 05:45
[2021-10-28 04:14] LABS: Basophils % (Auto) 0.4 % (0.0-1.8); Eosinophils % (Auto) 0.2 % (0.0-4.3); Hematocrit 38.6 % (30.3-42.9); Hemoglobin 12.3 gm/dl (10.1-14.3); Lymphocytes # (Auto) 0.7 K/mm3 (1.2-5.4); Lymphocytes % (Auto) 7.5 % (13.4-35.0); Mean Corpuscular HGB Conc 32 % (30-34); Mean Corpuscular Volume 77 fl (79-97); Monocytes # (Auto) 0.5 K/mm3 (0.0-0.8); Monocytes % (Auto) 5.2 % (0.0-7.3); Platelet Count 305 K/mm3 (140-440); Red Blood Count 5.04 M/mm3 (3.65-5.03); Red Cell Distribution Width 13.2 % (13.2-15.2)
[2021-10-28 04:30] LABS: BUN/Creatinine Ratio 17; Blood Urea Nitrogen 17 mg/dL (7-17); Calcium 9.5 mg/dL (8.4-10.2); Hemolysis Index 9
[2021-10-28] MEDS ORDERED: INSULIN REGULAR, HUMAN 100 UNITS/1 ML IV ONE (05:05)
[2021-10-28 06:16] VITALS: BP 120/74
== END 2021-10-28 06:16 | disposition home or self-care (01) ==
LOC: ED 02:32
DX: E11.65 Type 2 diabetes mellitus with hyperglycemia (principal); I10 Essential (primary) hypertension; J45.909 Unspecified asthma, uncomplicated; F17.200 Nicotine dependence, unspecified, uncomplicated
CPT/HCPCS: 36415; 80048; 82805; 82962; 85025; 96361; 96374; 99284; J7030; 80320; Q0162; Q9967; G0480; J1815